=== PATIENT | male | born 1955 | race Caucasian/White ===

== ENCOUNTER 2018-07-20 11:02 | Inpatient (IN) | payer OTHER ==
[~2018-07-20] VITALS: Ht 167.6 cm; Wt 78.2 kg
[2018-07-20 11:07] VITALS: Ht 167.6 cm; Wt 78.2 kg
[2018-07-20] MEDS ORDERED: EPINEPHrine 1 MG INJ IM STA (13:28)
[2018-07-20] MEDS ORDERED: FAMOTIDINE 20 MG INJ IV ONE (13:30)
[2018-07-20] MEDS ORDERED: SOD CHLORIDE 0.9% 1,000 ML IV ONE (14:00)
[2018-07-20] MEDS ORDERED: AMPICILLIN/SULB 3 GM/NS (PMX) 100 ML IVPB ONE (16:00)
[2018-07-20] MEDS ORDERED: morphine 4 MG/ML VIAL IV STA (17:29)
[2018-07-20] MEDS ORDERED: ONDANSETRON 4 MG INJ IV STA (17:29)
--- NOTE | 2018-07-20 17:57 | ERD ---
ER Documentation Chief Complaint Chief Complaint Tongue and neck swelling this morning HPI 62-year-old male presents for tongue and neck this morning at 6 AM. Patient states that he went to the clinic a yesterday for fever and sore throat, was given antibiotics, promethazine, ibuprofen. States he has been taking the promethazine and ibuprofen and noted that this morning his tongue in throat felt swollen. Hasn't taken the antibiotics yet. He was unable to eat anything. He returned to the clinic this morning and was told that he has an allergic reaction. He was given IM dexamethasone and hydroxyzine and was asked to come to the ER. Patient states that he currently has throat pain and his tongue continues to feel swollen. He continues to have fever. Denies SOB, CP, abdominal pain, nausea or vomiting. ROS All systems reviewed and are negative except as per history of present illness. Allergies Allergies: Coded Allergies: No Known Allergy (Unverified , 07/20/18) PMhx/Soc Medical and Surgical Hx: pt denies Medical Hx, pt denies Surgical Hx History of Surgery: No Anesthesia Reaction: No Hx Neurological Disorder: No Hx Respiratory Disorders: No Hx Cardiac Disorders: Yes (htn) Hx Psychiatric Problems: No Hx Miscellaneous Medical Probl: No Hx Alcohol Use: No Hx Substance Use: No Hx Tobacco Use: No Smoking Status: Never smoker Physical Exam Vitals Vital Signs Date Temp Pulse Resp B/P (MAP) Pulse Ox O2 O2 Flow FiO2 Time Delivery Rate 07/20/18 98.5 74 20 103/56 97 Room Air 18:41 (72) 07/20/18 98.3 70 18 107/53 96 Room Air 17:57 (71) 07/20/18 98.2 74 20 105/57 98 Room Air 15:46 (73) 07/20/18 98.4 98 20 130/74 98 11:07 (92) Physical Exam Const: No acute distress Head: Atraumatic Eyes: Normal Conjunctiva ENT: Normal External Ears and Nose, diffuse tongue swelling noted, with some swelling at the floor of the mouth, no tonsillar swelling or exudate noted, Neck: Full range of motion. No meningismus, mild neck swelling noted Resp: Clear to auscultation bilaterally, breathing normally, muffled voice noted Cardio: Regular rate and rhythm, no murmurs Abd: Soft, non tender, non distended. Normal bowel sounds Skin: No petechiae or rashes Back: No midline or flank tenderness Ext: No cyanosis, or edema Neur: Awake and alert Psych: Normal Mood and Affect Result Diagram: 07/20/18 1303 07/20/18 1303 Results 24 hrs Laboratory Tests Test 07/20/18 13:03 07/20/18 14:07 White Blood Count 19.5 10^3/ul Red Blood Count 4.53 10^6/ul Hemoglobin 12.8 g/dl Hematocrit 37.4 % Mean Corpuscular Volume 82.6 fl Mean Corpuscular Hemoglobin 28.3 pg Mean Corpuscular Hemoglobin Concent 34.2 g/dl Red Cell Distribution Width 12.7 % Platelet Count 357 10^3/UL Mean Platelet Volume 10.2 fl Immature Granulocytes % 1.100 % Neutrophils % 88.9 % Lymphocytes % 6.3 % Monocytes % 3.3 % Eosinophils % 0.1 % Basophils % 0.3 % Nucleated Red Blood Cells % 0.0 /100WBC Immature Granulocytes # 0.210 10^3/ul Neutrophils # 17.3 10^3/ul Lymphocytes # 1.2 10^3/ul Monocytes # 0.7 10^3/ul Eosinophils # 0.0 10^3/ul Basophils # 0.1 10^3/ul Nucleated Red Blood Cells # 0.0 10^3/ul Erythrocyte Sedimentation Rate 101.0 mm/Hr Sodium Level 128 mmol/L Potassium Level 3.6 mmol/L Chloride Level 89 mmol/L Carbon Dioxide Level 24 mmol/L Anion Gap 15 Blood Urea Nitrogen 56 mg/dl Creatinine 3.71 mg/dl Est Glomerular Filtrat Rate mL/min 17 mL/min Glucose Level 179 mg/dl Calcium Level 9.1 mg/dl Total Bilirubin 0.0 mg/dl Direct Bilirubin 0.00 mg/dl Indirect Bilirubin 0.0 mg/dl Aspartate Amino Transf (AST/SGOT) 51 IU/L Alanine Aminotransferase (ALT/SGPT) 23 IU/L Alkaline Phosphatase 91 IU/L C-Reactive Protein 13.6 mg/dl Total Protein 7.7 g/dl Albumin 3.9 g/dl Globulin 3.80 g/dl Albumin/Globulin Ratio 1.02 Complement C4 40 mg/dl POC Venous Lactate 0.9 mmol/L Current Medications Medications Dose Sig/Sumi Start Time Status Last (Trade) Ordered Route PRN Stop Time Admin Dose Reason Admin Famotidine 20 mg ONCE ONCE 07/20/18 DC 07/20/18 (Pepcid Iv) IV 13:30 13:36 07/20/18 13:33 Epinephrine 0.5 mg ONCE STAT 07/20/18 DC 07/20/18 IM 13:28 13:37 (EPINEPHrine) 07/20/18 13:33 Sodium 1,000 ml @ Q1H ONCE 07/20/18 DC 07/20/18 Chloride 1,000 mls/hr IV 14:00 14:28 07/20/18 14:59 Ampicillin 100 ml @ ONCE ONCE 07/20/18 DC 07/20/18 Sodium/ 100 mls/hr IVPB 16:00 16:31 Sulbactam 07/20/18 16:59 Sodium Morphine 4 mg ONCE STAT 07/20/18 DC 07/20/18 Sulfate IV 17:29 17:37 (morphine) 07/20/18 17:30 Ondansetron 4 mg ONCE STAT 07/20/18 DC 07/20/18 HCl (Zofran IV 17:29 17:37 Inj) 07/20/18 17:30 Ondansetron 4 mg BRIDGE ORDER 07/20/18 DC HCl (Zofran PRN IV 18:00 Inj) NAUSEA/VOMITI 07/20/18 18:59 NG 650 mg ER BRIDGE 07/20/18 DC Acetaminophen PRN PO 18:00 (Tylenol .MILD PAIN 07/20/18 18:59 Tab) 1-3 OR TEMP Sodium 1,000 ml @ Q10H IV 07/20/18 Chloride 100 mls/hr 18:28 IV Flush 3 ml PER 07/20/18 (NS 3 ml) PROTOCOL IV 18:30 Ondansetron 4 mg Q6H PRN 07/20/18 HCl (Zofran IV 18:30 Inj) NAUSEA/VOMITI NG 650 mg Q6H PRN 07/20/18 Acetaminophen PO .PAIN 1-3 18:30 (Tylenol OR TEMP Tab) 1 tab Q6H PRN 07/20/18 Acetaminophen PO .MOD PAIN 18:30 / 4-6 Hydrocodone Bitart ([place] (5/325)) Morphine 2 mg Q4H PRN 07/20/18 Sulfate IV .SEVERE 18:30 (morphine) PAIN 7-10 Docusate 100 mg Q12H PRN 07/20/18 Sodium PO 18:30 (Colace) .CONSTIPATION Zolpidem 5 mg QHS PRN 07/20/18 Tartrate PO .INSOMNIA 18:30 (Ambien) 60 mg Q8 IV 07/20/18 Methylprednis 22:00 olone Sodium Succinate (Solu-Medrol) 25 mg Q8 IV 07/20/18 Diphenhydrami 22:00 ne HCl 07/21/18 14:01 (Benadryl) Ampicillin 100 ml @ Q6 IVPB 07/21/18 UNV Sodium/ 100 mls/hr 00:00 Sulbactam Sodium Procedures/MDM Medical Decision Making: Differential diagnosis includes but not limited to allergic reaction, deep neck space infection, strep pharyngitis Patient appeared well on physical exam. There was a diffuse tongue swelling and swelling noted at the floor of the mouth. Patient also had muffled voice. Peripheral IV was started, patient was placed on pulse ox monitor. Patient had already been given dexamethasone IM and hydroxyzine in clinic. Patient was given Pepcid, epinephrine in the ER. Patient was monitored closely for airway obstruction. During initial evaluation patient's airway was protected. Rapid strep was negative. CBC showed a WBC of 19.5, mild anemia hemoglobin 12.8 CMP showed hyponatremia of 128, elevated BUN and creatinine of 56 and 3.71 respectively, LFTs were unremarkable ESR noted to be 101, CRP 13.6 complement C4 was 40 which is within normal limits Given history of fever and sore throat with tongue swelling and swelling of the floor of the mouth, there was some concern for a deep neck space infection, therefore CT scan was ordered without IV contrast given the elevated creatinine of 3.7 CT neck without IV contrast showed soft tissue swelling within the bilateral lingual tonsils with moderate to severe airway effacement of this region. Infectious/inflammatory etiologies are not excluded. There is no definite focal fluid collection given limitations of contrast. Direct inspection may be performed as clinically warranted. Given limitation of lack of contrast on the CT neck, patient was started on IV Unasyn. Elevated WBC of 19 noted at 1:54pm sepsis workup was initiated, patient given IV fluids, IV antibiotics, blood cultures were drawn. Lactic acid was noted to be 0.9. Patient was not bolus the 30 mg/kg given that patient did not meet severe sepsis criteria. The elevated WBC could also be contributed to by the steroid that patient was given in the clinic. Given sepsis criteria with tongue swelling, possibility for deep neck space infection, skin lap bonder hospitalist was contacted. Dr. Stapleton agreed to admit patient for further management. Disclaimer: Inadvertent spelling and grammatical errors are likely due to EHR/dictation software use and do not reflect on the overall quality of patient care. Also, please note that the electronic time recorded on this note does not necessarily reflect the actual time of the patient encounter. Departure Diagnosis: Primary Impression: Submandibular space infection Additional Impressions: Tongue swelling Hyponatremia RONAN (acute kidney injury) LOUANN CANNON DO Jul 20, 2018 17:57
[2018-07-20] MEDS ORDERED: ACETAMINOPHEN 325 MG TAB PO PRN ×2 (18:00→18:30)
[2018-07-20] MEDS ORDERED: ONDANSETRON 4 MG INJ IV PRN ×2 (18:00→18:30)
[2018-07-20] MEDS ORDERED: NACL 0.9% 3 ML SYG IV SCH (18:30)
[2018-07-20] MEDS ORDERED: morphine 2 MG INJ IV PRN (18:30)
[2018-07-20] MEDS ORDERED: ZOLPIDEM 5 MG TAB PO PRN (18:30)
[2018-07-20] MEDS ORDERED: HYDROCODONE/APAP (5/325) TAB PO PRN (18:30)
[2018-07-20] MEDS ORDERED: DOCUSATE SODIUM 100 MG CAP PO PRN (18:30)
--- NOTE | 2018-07-20 18:37 | HP ---
Date/Time of Note Date/Time of Note DATE: 07/20/18 TIME: 18:29 Assessment/Plan VTE Prophylaxis Pharmacological prophylaxis: NA/contraindicated Pharm contraindication: low risk/ambulating Lines/Catheters [facility] Saline Lock Assessment/Plan Hospital Course 1. Angioedema Patient is on any TRAVIS inhibitors Treat with steroids and antihistamines No clear signs of infection in the throat but will treat empirically with Unasyn due to leukocytosis 2. Leukocytosis secondary to underlying infection and/or reactive to steroids Empiric Unasyn 3. 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 Hyponatremia IV fluids Prophylaxis: Ambulation Result Diagram: 07/20/18 1303 07/20/18 1303 Results 24hrs Laboratory Tests Test 07/20/18 13:03 07/20/18 14:07 White Blood Count 19.5 H Red Blood Count 4.53 L Hemoglobin 12.8 L Hematocrit 37.4 L Mean Corpuscular Volume 82.6 Mean Corpuscular Hemoglobin 28.3 L Mean Corpuscular Hemoglobin Concent 34.2 Red Cell Distribution Width 12.7 Platelet Count 357 Mean Platelet Volume 10.2 Immature Granulocytes % 1.100 H Neutrophils % 88.9 H Lymphocytes % 6.3 L Monocytes % 3.3 Eosinophils % 0.1 Basophils % 0.3 Nucleated Red Blood Cells % 0.0 Immature Granulocytes # 0.210 H Neutrophils # 17.3 H Lymphocytes # 1.2 Monocytes # 0.7 Eosinophils # 0.0 Basophils # 0.1 Nucleated Red Blood Cells # 0.0 Erythrocyte Sedimentation Rate 101.0 H Sodium Level 128 L Potassium Level 3.6 Chloride Level 89 L Carbon Dioxide Level 24 Anion Gap 15 H Blood Urea Nitrogen 56 H Creatinine 3.71 H Est Glomerular Filtrat Rate mL/min 17 L Glucose Level 179 Calcium Level 9.1 Total Bilirubin 0.0 L Direct Bilirubin 0.00 Indirect Bilirubin 0.0 Aspartate Amino Transf (AST/SGOT) 51 H Alanine Aminotransferase (ALT/SGPT) 23 Alkaline Phosphatase 91 C-Reactive Protein 13.6 H Total Protein 7.7 Albumin 3.9 Globulin 3.80 H Albumin/Globulin Ratio 1.02 Complement C4 40 POC Venous Lactate 0.9 HPI/ROS Admit Date/Time Admit Date/Time 07/20/2018 Hx of Present Illness Patient is a 62-year-old male with report of CKD from kidney stones, patient presents with several weeks of fevers and malaise as well as sore throat, patient went to the clinic yesterday and was given antibiotics, promethazine and NSAIDs. Patient has reportedly been taking the promethazine and ibuprofen but not antibiotics, patient noticed his tongue and throat feeling swollen this morning was unable to eat. Patient return to the clinic was told that he may be having an allergic reaction and was given IM dexamethasone and hydroxyzine was told to come to the ER. Patient continues to report pain in his throat and a swollen tongue. Patient is not on any TRAVIS inhibitors denies history of diabetes. In the ER patient's white count was elevated as well as his creat inine. Patient denies any current fevers, chills or GI discomfort. Patient denies any prior history of such symptoms. ROS Constitutional: no complaints, improved Eyes: no complaints ENT: sore throat, other (Swelling of the tongue) Respiratory: no complaints Cardiovascular: no complaints Gastrointestinal: no complaints Genitourinary: no complaints Musculoskeletal: no complaints Skin: no complaints Neurologic: no complaints Endocrine: no complaints Lymphatic: no complaints Psychological: no complaints, nl mood/affect Immunologic: no complaints PMH/Family/Social Past Medical History Nephrolithiasis with CKD Medications Current Medications Ondansetron HCl (Zofran Inj) 4 mg BRIDGE ORDER PRN IV NAUSEA/VOMITING; Start 07/20/18 at 18:00; Stop 07/21/18 at 17:59 Acetaminophen (Tylenol Tab) 650 mg ER BRIDGE PRN PO .MILD PAIN 1-3 OR TEMP; Start 07/20/18 at 18:00; Stop 07/21/18 at 17:59 Coded Allergies: No Known Allergy (Unverified , 07/20/18) Past Surgical History Past Surgical Hx: no surgical history Family History Significant Family History: no pertinent family hx Social History Alcohol Use: rarely Smoking Status: Never smoker Drug Use: none Exam/Review of Systems Vital Signs Vitals Vital Signs Date Temp Pulse Resp B/P (MAP) Pulse Ox O2 O2 Flow FiO2 Time Delivery Rate 07/20/18 98.3 70 18 107/53 96 Room Air 17:57 (71) Exam Constitutional: alert, oriented ENMT: other (Slightly swollen tongue, no tonsillar abnormalities noted) Respiratory: clear to auscultation Cardiovascular: regular rate and rhythm Gastrointestinal: soft; No distended Musculoskeletal: nl extremities to inspection NEY ADAME Jul 20, 2018 18:37
[2018-07-20 20:00] VITALS: BP 92/53; PULSE 72; RESP 19
[2018-07-20] MEDS: SOD CHLORIDE 0.9% 1,000 ML IV SCH (20:53)
[2018-07-20] MEDS: AMPICILLIN/SULB 3 GM/NS (PMX) 100 ML IVPB SCH (23:07)
[2018-07-20] MEDS: METHYLPREDNISOLONE 125 MG INJ IV SCH (23:14)
[2018-07-20] MEDS: DIPHENHYDRAMINE 50 MG INJ IV SCH (23:15)
[2018-07-21] MEDS: CEPASTAT LOZENGE MT PRN ×2 (02:25→21:21)
[2018-07-21 02:46] VITALS: BP 103/65; PULSE 62; RESP 18
[2018-07-21] MEDS: SOD CHLORIDE 0.9% 1,000 ML IV SCH ×3 (04:28→21:20)
[2018-07-21] MEDS: METHYLPREDNISOLONE 125 MG INJ IV SCH ×3 (06:14→21:21)
[2018-07-21] MEDS: DIPHENHYDRAMINE 50 MG INJ IV SCH ×2 (06:16→13:43)
--- NOTE | 2018-07-21 06:59 | NUR ---
1930 Pt received on unit as an ER admission alert and oriented x4, no s/s of distress, respirations regular and even, ambulatory and steady. Pt is Ecuad[place] speaking with a Chief Complaint of Tongue swelling/ Throat swelling. Admitted for possible angioedema. Vitals stable. 2100 Antibiotic Unasyn not available, waiting for pharmacy to supply. 2300 Scheduled medications administered w/o difficulty. Admission questions completed with the use of the video citizenship instructor. Skin assessment completed, skin intact. 0300 Pt sleeping well, complaints of pain in the throat, medication administered by charger tester. 0630 No significant changes noted throughout the shift. Nursing will continue to monitor and endorse to oncoming RN to ensure pt safety and continuity of care.
[2018-07-21 07:55] VITALS: BP 114/66; PULSE 62; RESP 18
[2018-07-21] MEDS: AMPICILLIN/SULB 3 GM/NS (PMX) 100 ML IVPB SCH ×2 (08:29→21:20)
--- NOTE | 2018-07-21 11:47 | PN ---
Date/Time of Note Date/Time of Note DATE: 07/21/18 TIME: 11:43 Assessment/Plan VTE Prophylaxis [place] [facility] risk: 3 [place]CD applied [place] [facility] Yes Pharmacological prophylaxis: NA/contraindicated Pharm contraindication: low risk/ambulating Lines/Catheters IV [facility] Type [facility]from [facility] Peripheral IV Urinary Cath still in place: No Assessment/Plan Hospital Course 1. Angioedema-improving Continue steroids and antihistamines No indication for inpatient ENT consultation at this time, patient is able to tolerate p.o. diet has no respiratory distress Advance diet No clear signs of infection in the throat but continue empiric treatment with Unasyn due to leukocytosis 2. Leukocytosis secondary to underlying infection and/or reactive to steroids Empiric Unasyn 3. CKD Patient reports having CKD at baseline secondary to nephrolithiasis Renal ultrasound shows medical renal disease Patient does follow-up with a mail manager as an outpatient No indication for inpatient nephrology consultation 4. Hyponatremia-resolved with fluids Continue IV fluids Prophylaxis: Ambulation DC planning: Patient is improving with treatment, anticipate DC to home tomorrow Result Diagram: 07/21/18 0704 07/21/18 0704 Results 24hrs Laboratory Tests Test 07/20/18 13:03 07/20/18 14:07 07/21/18 07:04 White Blood Count 19.5 H 22.6 H Red Blood Count 4.53 L 4.47 L Hemoglobin 12.8 L 12.8 L Hematocrit 37.4 L 37.5 L Mean Corpuscular Volume 82.6 83.9 Mean Corpuscular Hemoglobin 28.3 L 28.6 L Mean Corpuscular Hemoglobin Concent 34.2 34.1 Red Cell Distribution Width 12.7 13.2 Platelet Count 357 366 Mean Platelet Volume 10.2 10.2 Immature Granulocytes % 1.100 H 0.900 H Neutrophils % 88.9 H 89.4 H Lymphocytes % 6.3 L 6.3 L Monocytes % 3.3 3.2 Eosinophils % 0.1 0.0 Basophils % 0.3 0.2 Nucleated Red Blood Cells % 0.0 0.0 Immature Granulocytes # 0.210 H 0.210 H Neutrophils # 17.3 H 20.2 H Lymphocytes # 1.2 1.4 Monocytes # 0.7 0.7 Eosinophils # 0.0 0.0 Basophils # 0.1 0.0 Nucleated Red Blood Cells # 0.0 0.0 Erythrocyte Sedimentation Rate 101.0 H Sodium Level 128 L 136 Potassium Level 3.6 4.2 Chloride Level 89 L 99 # Carbon Dioxide Level 24 23 Anion Gap 15 H 14 H Blood Urea Nitrogen 56 H 50 H Creatinine 3.71 H 2.69 #H Est Glomerular Filtrat Rate mL/min 17 L 24 L Glucose Level 179 194 Calcium Level 9.1 8.5 Total Bilirubin 0.0 L Direct Bilirubin 0.00 Indirect Bilirubin 0.0 Aspartate Amino Transf (AST/SGOT) 51 H Alanine Aminotransferase (ALT/SGPT) 23 Alkaline Phosphatase 91 C-Reactive Protein 13.6 H Total Protein 7.7 Albumin 3.9 Globulin 3.80 H Albumin/Globulin Ratio 1.02 Complement C4 40 POC Venous Lactate 0.9 Hemoglobin A1c 6.3 H Phosphorus Level 5.7 H Magnesium Level 2.0 Free Thyroxine Index 2.87 Thyroxine (T4) 6.1 Triiodothyronine (T3) Uptake 47.0 H Subjective 24 Hr Interval Summary ENT: sore throat Exam/Review of Systems Exam Vitals Vital Signs Date Temp Pulse Resp B/P (MAP) Pulse Ox O2 O2 Flow FiO2 Time Delivery Rate 07/21/18 97.7 62 18 114/66 97 07:55 (82) 07/20/18 Room Air 18:41 Intake and Output 07/20/18 07/20/18 07/21/18 1515:00 23:00 07:00 IntakeIntake Total 1100 ml 240 ml BalanceBalance 1100 ml 240 ml Constitutional: alert, oriented Respiratory: clear to auscultation Cardiovascular: regular rate and rhythm Gastrointestinal: soft; No distended Musculoskeletal: nl extremities to inspection Results Results 24hrs Laboratory Tests Test 07/20/18 13:03 07/20/18 14:07 07/21/18 07:04 White Blood Count 19.5 H 22.6 H Red Blood Count 4.53 L 4.47 L Hemoglobin 12.8 L 12.8 L Hematocrit 37.4 L 37.5 L Mean Corpuscular Volume 82.6 83.9 Mean Corpuscular Hemoglobin 28.3 L 28.6 L Mean Corpuscular Hemoglobin Concent 34.2 34.1 Red Cell Distribution Width 12.7 13.2 Platelet Count 357 366 Mean Platelet Volume 10.2 10.2 Immature Granulocytes % 1.100 H 0.900 H Neutrophils % 88.9 H 89.4 H Lymphocytes % 6.3 L 6.3 L Monocytes % 3.3 3.2 Eosinophils % 0.1 0.0 Basophils % 0.3 0.2 Nucleated Red Blood Cells % 0.0 0.0 Immature Granulocytes # 0.210 H 0.210 H Neutrophils # 17.3 H 20.2 H Lymphocytes # 1.2 1.4 Monocytes # 0.7 0.7 Eosinophils # 0.0 0.0 Basophils # 0.1 0.0 Nucleated Red Blood Cells # 0.0 0.0 Erythrocyte Sedimentation Rate 101.0 H Sodium Level 128 L 136 Potassium Level 3.6 4.2 Chloride Level 89 L 99 # Carbon Dioxide Level 24 23 Anion Gap 15 H 14 H Blood Urea Nitrogen 56 H 50 H Creatinine 3.71 H 2.69 #H Est Glomerular Filtrat Rate mL/min 17 L 24 L Glucose Level 179 194 Calcium Level 9.1 8.5 Total Bilirubin 0.0 L Direct Bilirubin 0.00 Indirect Bilirubin 0.0 Aspartate Amino Transf (AST/SGOT) 51 H Alanine Aminotransferase (ALT/SGPT) 23 Alkaline Phosphatase 91 C-Reactive Protein 13.6 H Total Protein 7.7 Albumin 3.9 Globulin 3.80 H Albumin/Globulin Ratio 1.02 Complement C4 40 POC Venous Lactate 0.9 Hemoglobin A1c 6.3 H Phosphorus Level 5.7 H Magnesium Level 2.0 Free Thyroxine Index 2.87 Thyroxine (T4) 6.1 Triiodothyronine (T3) Uptake 47.0 H Medications Medication Current Medications Sodium Chloride 1,000 ml @ 100 mls/hr Q10H IV Last administered on 07/21/18at 08:29; Admin Dose 100 MLS/HR; Start 07/20/18 at 18:28 IV Flush (NS 3 ml) 3 ml PER PROTOCOL IV ; Start 07/20/18 at 18:30 Ondansetron HCl (Zofran Inj) 4 mg Q6H PRN IV NAUSEA/VOMITING; Start 07/20/18 at 18:30 Acetaminophen (Tylenol Tab) 650 mg Q6H PRN PO .PAIN 1-3 OR TEMP; Start 07/20/18 at 18:30 Acetaminophen/ Hydrocodone Bitart ([place] (5/325)) 1 tab Q6H PRN PO .MOD PAIN 4- 6; Start 07/20/18 at 18:30 Morphine Sulfate (morphine) 2 mg Q4H PRN IV .SEVERE PAIN 7-10 Last administered on 07/21/18at 02:25; Admin Dose 2 MG; Start 07/20/18 at 18:30 Docusate Sodium (Colace) 100 mg Q12H PRN PO .CONSTIPATION; Start 07/20/18 at 18:30 Zolpidem Tartrate (Ambien) 5 mg QHS PRN PO .INSOMNIA; Start 07/20/18 at 18:30 Methylprednisolone Sodium Succinate (Solu-Medrol) 60 mg Q8 IV Last administered on 07/21/18at 06:14; Admin Dose 60 MG; Start 07/20/18 at 22:00 Diphenhydramine HCl (Benadryl) 25 mg Q8 IV Last administered on 07/21/18at 06:16; Admin Dose 25 MG; Start 07/20/18 at 22:00; Stop 07/21/18 at 14:01 Ampicillin Sodium/ Sulbactam Sodium 100 ml @ 100 mls/hr Q12 IVPB Last administered on 07/21/18at 08:29; Admin Dose 100 MLS/HR; Start 07/20/18 at 21:00 Phenol (Cepastat Lozenge) 1 lozenge Q1H PRN MT sore throat Last administered on 07/21/18at 02:25; Admin Dose 1 LOZENGE; Start 07/21/18 at 02:30 Influenza Virus Vaccine Quadrival (Fluzone) 0.5 ml ONCE ONCE IM* ; Start 07/22/18 at 10:00; Stop 07/22/18 at 10:01 Miscellaneous Information Patients own medicat... BID@ XX ; Start 07/21/18 at 10:00 NEY ADAME Jul 21, 2018 11:47
[2018-07-21 14:34] VITALS: BP 104/63; PULSE 61; RESP 19
--- NOTE | 2018-07-21 15:48 | NUR ---
RN Notes: Patient remains alert and oriented, afebrile, breathing even and unlabored, no sob noted, denies pain/discomfort, able to ambulate with steady gait. Dr. Stapleton advanced his diet to soft tolerated well, no n/v noted. Also MD aware regarding elevated WBC, antibiotic adm as ordered, no A/R noted. Hourly rounding done, call light within reach. Will continue to monitor until the end of the shift. Addendum: 07/21/18 at 1806 by BARTOLO BOWMAN RN No significant changes during this shift. Will endorse for continuity of care
[2018-07-21 20:25] VITALS: BP 135/66; PULSE 69; RESP 18
--- NOTE | 2018-07-21 22:44 | NUR ---
1914 Pt received aaox4, no s/s of distress, respirations regular and even. Pt oriented to oncoming RN & [employer] MACHINE OPERATOR and [facility] safety protocols reviewed including an active bed alarm and hourly rounding. Pt verbalized his understanding. 2119 Scheduled medications administered via IV w/o difficulty. Pt denies needs at this time. Pt offered yogurt (soft diet) tolerated well. No s/s of nausea or vomiting. Nursing will continue to monitor. Call rivera within reach. Addendum: 07/22/18 at 0342 by RENNY GARDUNO RN 0 Pt asleep, respirations regular and even. Nursing continues to monitor. Addendum: 07/22/18 at 0607 by RENNY GARDUNO RN 0545 Scheduled medications administered to pt w/o difficulty, pt reports that lab personal arrived to take blood and utilized pts left arm. Pt reports he tried to tell them that they could not use his left arm due to left arm precautions, yet lab personal gil blood from left arm and despite pts comment and left arm precautions sign on pt room door. Left arm limb alert bracelet applied to pt; charge nurse aware. Addendum: 07/22/18 at 0641 by RENNY GARDUNO RN 0630 Pt stable, no significant changes in pt status noted throughout the shift. Nursing will continue to monitor and endorse to oncoming shift to ensure pt safety and continuity of care.
[2018-07-22 02:25] VITALS: BP 105/59; PULSE 63; RESP 18
[2018-07-22] MEDS: METHYLPREDNISOLONE 125 MG INJ IV SCH ×2 (05:46→13:58)
[2018-07-22] MEDS: CEPASTAT LOZENGE MT PRN ×2 (05:46→09:07)
[2018-07-22 08:00] VITALS: BP 139/66; PULSE 67; RESP 20
[2018-07-22] MEDS: AMPICILLIN/SULB 3 GM/NS (PMX) 100 ML IVPB SCH (09:07)
[2018-07-22] MEDS: SOD CHLORIDE 0.9% 1,000 ML IV SCH (09:07)
--- NOTE | 2018-07-22 11:03 | PDOCDIS ---
Discharge Instructions CONDITION [id number] Patient Condition: [id number] Good HOME CARE INSTRUCTIONS: [id number] Diet Instructions: [id number] Regular ACTIVITY: [id number] Activity Restrictions: [id number] No Restrictions FOLLOW UP/APPOINTMENTS Follow-up Plan FOLLOW UP WITH YOUR PRIMARY CARE PHYSICIAN IN 1-2 WEEKS, follow-up with career coordinator as scheduled NEY ADAME Jul 22, 2018 11:03
--- NOTE | 2018-07-22 11:07 | DS ---
Date/Time of Note Date/Time of Note DATE: 07/22/18 TIME: 11:03 Discharge Summary Admission/Discharge Info Admit Date/Time Jul 20, 2018 at 21:12 Discharge Date/Time July 22, 2018 Discharge Diagnosis 1. Angioedema likely secondary to a medication reaction-resolved Patient is not on an TRAVIS inhibitor Status post steroids and antihistamines No indication for inpatient ENT consultation at this time, patient is able to tolerate p.o. diet has no respiratory distress No clear signs of infection in the throat but patient is status post empiric treatment with Unasyn due to leukocytosis No indication for further antibiotics when he 2. Leukocytosis secondary to underlying infection and/or reactive to steroids Status post empiric Unasyn 3. CKD Patient reports having CKD at baseline secondary to nephrolithiasis Renal ultrasound shows medical renal disease Patient does follow-up with a plastics process hand as an outpatient No indication for inpatient nephrology consultation 4. Hyponatremia-resolved with fluids Status post IV fluids Patient Condition: Good Hospital Course Patient is a 62-year-old male with report of CKD from kidney stones, patient presents with several weeks of fevers and malaise as well as sore throat, patient went to a clinic and was given antibiotics, promethazine and NSAIDs. Patient has reportedly been taking the promethazine and ibuprofen but not antibiotics, patient noticed his tongue and throat feeling swollen was unable to eat. Patient is not on any TRAVIS inhibitors denies history of diabetes. Patient was diagnosed with angioedema likely secondary to promethazine and/or ibuprofen, patient received steroids and antihistamines and his and edema did resolve. Patient was able to tolerate a p.o. diet denies any further throat discomfort. Patient does have CKD at baseline, ultrasound of the kidneys did show medical renal disease, patient does follow-up with a plastics process hand as an outpatient. Patient was stable for DC, on the day of DC patient's vitals, labs and physical exam are stable. Home Meds No Active Prescriptions or Reported Meds Follow-up Plan FOLLOW UP WITH YOUR PRIMARY CARE PHYSICIAN IN 1-2 WEEKS, follow-up with plastics process hand as scheduled Primary Care Provider Care Physician No Primary Time spent on discharge: > 30 minutes NEY ADAME Jul 22, 2018 11:07
--- NOTE | 2018-07-22 11:32 | NUR ---
RN Notes: Dr. Stapleton medically cleared pt to go home with discharge home order. Pt aware regarding discharge order also informed regarding FLU Vaccine and gave verbal consent, FLU vaccine form provided. Pt alert and oriented, afebrile, no acute distress noted, denies pain/discomfort. Discharge instruction provided with helped of headliner installer [employer] [id number], reeducated regarding need follow up appt with his primary doctor 1-2 weeks after discharge and follow up with his chain dyer, pt verbalized understanding and said his will come to pick him up after 1400. Called pharmacy regarding pt's stored medication. Needs attended. Addendum: 07/22/18 at 1439 by BARTOLO BOWMAN RN FLU Vaccine adm on right deltoid tolerated well covered with bandaid. Picked up home meds from the pharmacy and gave to pt. Pt signed all discharge paperwork and belonging list. IV line removed no active bleeding noted covered with dry dressing. Per Dr. Stapleton pt does not need new meds/prescription. Called volunteer to helped pt in the lobby. Pt remains alert and oriented, ambulatory with steady gait, denies pain when swallowing, no sob noted. Pt left the unit in stable condition accompanied by his .
== END 2018-07-22 14:45 | disposition home or self-care (01) | DRG 916 ==
LOC: FTE 11:02 → PP2 17:53 → OBSVTOIN 21:12
PROVIDERS: ADMIT Internal Medicine; ATTEND Internal Medicine
DX: T78.3XXA Angioneurotic edema, initial encounter (principal); E87.1 Hypo-osmolality and hyponatremia; N17.9 Acute kidney failure, unspecified; M27.2 Inflammatory conditions of jaws; T88.7XXA Unspecified adverse effect of drug or medicament, initial encounter; T43.3X5A Adverse effect of phenothiazine antipsychotics and neuroleptics, initial encounter; N18.9 Chronic kidney disease, unspecified; N20.0 Calculus of kidney; Y84.8 Other medical procedures as the cause of abnormal reaction of the patient, or of later complication, without mention of misadventure at the time of the procedure; Y92.019 Unspecified place in single-family (private) house as the place of occurrence of the external cause
CPT/HCPCS: 70490; 71045; 76775; 80048; 80053; 83036; 83605; 83735; 84100; 84436; 84479; 85025; 85651; 86140; 86160; 87040; 87880; 90686; 96361; 96365; 96372; 96375; G0378; J0171; J0295; J1200; J2270; J2405; J2930; J7030